=== PATIENT | male | born 1975 | race Caucasian/White ===

== ENCOUNTER → 2020-12-23 09:13 | Outpatient (CLI) | payer OTHER, SELFPAY ==
--- NOTE | ~2020-12-23 | XR_ITS ---
EXAMINATION: XR shoulder LT min 2V EXAM DATE: 12/23/2020 09:25 INDICATION: M25.512 - Pain in left shoulder . No known recent injury. TECHNIQUE: The following left shoulder projections obtained: frontal projection with internal rotatio n, frontal projection with external rotation, Grashey, and axillary (4+ views). There is no prior st udy for comparison. FINDINGS: No evidence of left shoulder rotator cuff calcific tendinosis. Unremarkable left glenoh umeral and acromioclavicular joints. There are no acute fractures or dislocations identified. There is no subcutaneous gas. The soft tissue is unremarkable. There are no radiopaque foreign bodies. IMPRESSION: 1. Unremarkable left shoulder exam. Reviewed, dictated and finalized at location A.
== END ==
PROVIDERS: PCP Family Medicine; Visit Provider Nurse Practitioner Family
DX: M25.512 Pain in left shoulder (principal)
CPT/HCPCS: 73030

== ENCOUNTER → 2021-01-11 07:45 | Outpatient (CLI) | payer OTHER, SELFPAY ==
--- NOTE | ~2021-01-11 | MR_ITS ---
EXAMINATION: MR shoulder LT wo con DATE: 01/11/2021 08:28 INDICATION: Left shoulder pain TECHNIQUE: Magnetic resonance imaging (MRI) of the affected shoulder was performed without intravenou s contrast. Sequences included axial PD-weighted FS FSE, coronal oblique PD-weighted FS FSE, coronal oblique T2-weighted FS FSE, sagittal PD-weighted FS FSE, and sagittal T1-weighted SE. COMPARISON: None. FINDINGS: Coracoacromial arch: The acromion undersurface is curved in morphology (type II). The coracoacromial ligament is normal. M inimal acromioclavicular osteoarthritis. Rotator cuff: Mild supraspinatus and subscapularis tendinopathy without discrete tear. The infraspinatus and teres minor tendons are normal. Normal rotator cuff muscle bulk and signal. Biceps tendon, glenoid labrum and glenohumeral cartilage: Long head of the biceps tendon is normal. Small tear at the 12:00-11:00 position of the glenoid labru m. Chondral fissuring near the chondro labral junction at the 3:30 rim of the anterior glenoid. Lamonte ohumeral cartilage is otherwise normal. Fluid: Physiologic amount of fluid in the glenohumeral joint and biceps tendon sheath. No loose osteochondra l bodies. No abnormal increased fluid signal in the subacromial/subdeltoid bursa to suggest bursitis. Bones: Normal marrow signal with no edema, fracture or abnormal marrow replacing process. IMPRESSION: 1. Small tear at the superior glenoid labrum and small region of partial-thickness chondral fissuring at the anterior rim of the glenoid. 2. Mild supraspinatus and subscapularis tendinopathy without discrete tear. Reviewed, dictated and finalized at location A. IMPRESSION: 1. Small tear at the superior glenoid labrum and small region of partial-thickn ess chondral fissuring at the anterior rim of the glenoid. 2. Mild supraspinatus and subscapularis tendinopathy without discrete tear.
== END ==
PROVIDERS: PCP Family Medicine; Visit Provider Nurse Practitioner Family
DX: M25.512 Pain in left shoulder (principal); M54.2 Cervicalgia; R29.898 Other symptoms and signs involving the musculoskeletal system; S43.432A Superior glenoid labrum lesion of left shoulder, initial encounter
CPT/HCPCS: 73221

== ENCOUNTER 2022-07-17 13:30 | Emergency (ER) | payer OTHER, SELFPAY ==
--- NOTE | ~2022-07-17 | XR_ITS ---
EXAM: XR shoulder LT min 2V DATE: 07/17/2022 14:29 HISTORY: fall,pain radiates to neck . COMPARISON: 12/23/2020. FINDINGS: Normal mineralization. No fracture or dislocation. No lytic or blastic lesion. Mild degene rative change at the glenohumeral joint. No erosion or periosteal change. Soft tissues within normal limits. IMPRESSION: No acute osseous finding in the left shoulder. Reviewed, dictated and finalized at location K.
--- NOTE | ~2022-07-17 | XR_ITS ---
EXAMINATION: XR ribs LT 2V w CXR 2V Exam Date/Time: 07/17/2022 14:20 CDT HISTORY: fall, lower left rib pain Comparison: None available. RESULT: Lines, tubes, and devices: None. Lungs and pleura: Subsegmental streaky opacities in the left lateral and retrocardiac lung. Mild lef t posterior costophrenic angle blunting. Cardiothymic silhouette: Unremarkable. Other: No acute upper abdominal finding. Minimally displaced left lateral seventh rib fracture. Nond isplaced left lateral sixth rib fracture. IMPRESSION: Nondisplaced left lateral sixth rib fracture. Minimally displaced left lateral seventh rib fracture. Left basilar atelectasis. Very small volume left posterior costophrenic sulcus fluid collection, like ly hemothorax in the setting of trauma. Reviewed, dictated and finalized at [facility]. IMPRESSION: Nondisplaced left lateral sixth rib fracture. Minimally displaced left lateral seventh rib fracture. Left basilar atelectasis. Very small volume left posterio r costophrenic sulcus fluid collection, likely hemothorax in the setting of tra karely.
[2022-07-17 13:42] VITALS: BP 156/88; PULSE 113; RESP 18; TEMP 36.6; O2SAT 99
--- NOTE | 2022-07-17 13:46 | ED.FALL ---
HPI - Fall General Chief Complaint: Fall <Nikki Macdonald NP - Last Filed: 07/17/22 16:05> Stated Complaint: Fall <Nikki Macdonald NP - Last Filed: 07/17/22 16:05> Time Seen by Provider: 07/17/22 13:46 <Nikki Macdonald NP - Last Filed: 07/17/22 16:05> Source: patient <Nikki Macdonald NP - Last Filed: 07/17/22 16:05> Mode of arrival: ambulatory <CHADWICK Lerma Last Filed: 07/17/22 16:05> Limitations: no limitations <CHADWICK Lerma Last Filed: 07/17/22 16:05> History of Present Illness HPI Narrative: 46 yo Male presents with complaint of left shoulder pain, left lateral rib pain after tripping over his dog last night. Reports the injury happened around midnight. states that he fell backwards. Denies hitting his head, no LOC. Patient ambulatory with steady gait. Is uncomfortable, holding left side of ribs and unable to sit due to pain. Denies shortness of breath. Took Tylenol around 9:00 a.m. this morning. All systems reviewed and negative except as noted above. <Nikki Macdonald NP - Last Filed: 07/17/22 16:05> Related Data Home Medications: Home Medications Medication Instructions Recorded Confirmed No Home Medications 12/23/20 07/17/22 <CHADWICK Lerma Last Filed: 07/17/22 16:05> Allergies/Adverse Reactions: Allergies Allergy/AdvReac Type Severity Reaction Status Date / Time No Known Allergies Allergy Verified 07/17/22 13:42 <Nikki Macdonald NP - Last Filed: 07/17/22 16:05> Review of Systems Review of Systems: CONSTITUTIONAL: Denies fever, chills, or sweats. EYES: Denies visual changes, redness, or discharge. ENT: Denies rhinorrhea, congestion, sore throat, or otalgia. CARDIOVASCULAR: Denies chest pain, palpitations, or edema. RESPIRATORY: Denies cough or dyspnea. GASTROINTESTINAL: Denies abdominal pain, nausea, vomiting, or diarrhea. GENITOURINARY: Denies dysuria or hematuria. SKIN: Denies rash or itching. MUSCULOSKELETAL: reports left-sided rib pain, left shoulder pain. NEUROLOGIC: Denies headache, numbness, or weakness. PSYCHIATRIC: Denies anxiety or depression. All other systems reviewed are negative, except as documented in HPI. <Nikki Macdonald NP - Last Filed: 07/17/22 16:05> COUNTS INCLUDE 234 BEDS AT THE [facility] Past Medical History Medical History: Medical History BMI 28.0-28.9,adult Cramping of hands Dietary counseling and surveillance (12/13/18) Elevated fasting glucose Encounter for screening for malignant neoplasm of prostate Low back pain Mixed hyperlipidemia Rotator cuff tendonitis <Nikki Macdonald NP - Last Filed: 07/17/22 16:05> Family History Family History: Family History Father Cancer Mother Cancer Sibling No problems noted. Other Diabetes mellitus Hypertension <Nikki Macdonald NP - Last Filed: 07/17/22 16:05> Social History Social History: Social History Smoking status: Never smoker Alcohol intake: current Substance use: never Substance use type: does not use Living arrangements: with family Occupation/Education: occupation Additional occupation/education comments: [employer] Gender identity (if verbalized by the patient): Male <Nikki Macdonald NP - Last Filed: 07/17/22 16:05> Comments At time of signature, agree with nursing past medical, surgical, social and family history. There is no relevant family history pertinent to the presenting complaint. <Nikki Macdonald NP - Last Filed: 07/17/22 16:05> Exam Narrative: GENERAL: This is a well-nourished, well-developed patient, in no apparent distress. HEAD: normocephalic, atraumatic. EYES: PERRL. Sclera clear/white. Vision is grossly intact. EARS: External ears normal NOSE
--- NOTE | 2022-07-17 13:53 | PC.NURSE ---
1351- Rn to Rn report given to Pancho Love, transferred to [facility] facility for xray
== END 2022-07-17 15:20 | disposition short-term general hospital (02) ==
PROVIDERS: Emergency Provider Nurse Practitioner Family; PCP Family Medicine
DX: S22.42XA Multiple fractures of ribs, left side, initial encounter for closed fracture (principal); W01.0XXA Fall on same level from slipping, tripping and stumbling without subsequent striking against object, initial encounter; M25.512 Pain in left shoulder; E78.2 Mixed hyperlipidemia
CPT/HCPCS: 71046; 71100; 73030; 99214; G0463

== ENCOUNTER 2024-02-08 07:00 | Outpatient (NON) | payer OTHER, SELFPAY | END 2024-02-08 07:01 | disposition home or self-care (01) | LOC: ANHLAB 02-09 07:26 | PROVIDERS: PCP Family Medicine; Visit Provider Internal Medicine Gastroenterology | DX: K63.5 Polyp of colon (principal) | CPT/HCPCS: 88305 ==

== ENCOUNTER 2024-02-08 07:10 | Day surgery (SDC) | payer OTHER, SELFPAY ==
[2024-01-01 15:13] VITALS: BMI 28.0
[2024-01-23 11:53] VITALS: BMI 26.9
[2024-02-08 08:17] VITALS: BP 123/91; PULSE 108; RESP 16; O2SAT 99; BMI 26.5
--- NOTE | 2024-02-08 08:26 | PM.HPGS ---
History of Present Illness History of Present Illness Consent: Risks, benefits, and alternatives have been discussed and questions answered. Patient agrees to proceed with procedure. Chief complaint: Family History of Colon Cancer Narrative: Nicho Swann is a 48 year old male presents for screening colonoscopy. His father had colon cancer. His brother and his sister both have had colon polyps. The patient reports that his own weight appetite and bowel habits are normal. The patient denies abdominal pain. He has had no bleeding. Review of Systems Review of Systems: All systems reviewed & are unremarkable except as noted in HPI and below PMFSH Past Medical History Medical History (Updated 02/07/24 @ 13:24 by Julián Cuellar, DO) BMI 28.0-28.9,adult Cramping of hands Dietary counseling and surveillance (12/13/18) Elevated fasting glucose Encounter for screening for malignant neoplasm of prostate Essential hypertension Fracture of rib of left side Low back pain Mixed hyperlipidemia Rotator cuff tendonitis Uncontrolled pain Family History Family History Father Cancer Mother Cancer Sibling No problems noted. Other Diabetes mellitus Hypertension Social History Social History Smoking status: Current every day smoker Tobacco type: e-cigarettes/vaping Alcohol intake: current Drinks per week: 30 Alcohol use details: beer Substance use: never Substance use type: does not use Lack of Transportation: No Lack of Food: Never True Current Housing: I Have Housing Concerned About Future Housing: No Difficulty Paying Gas/Electric Bills: No Difficulty Paying for Meds: No Currently Unemployed: No Difficulty w/ Childcare or Family Care: No Living arrangements: with family Occupation/Education: occupation Additional occupation/education comments: [employer] Gender identity (if verbalized by the patient): Male Spiritual care concerns: No Meds Home Medications and Allergies Home Medications Medication Instructions Recorded Confirmed Type lisinopril 10 mg tablet 10 mg PO DAILY #30 tabs 12/19/23 02/08/24 Rx mecobalamin (vitamin B12) 2,500 2,500 mcg PO DAILY 01/23/24 02/08/24 History mcg chewable tablet Allergies Allergy/AdvReac Type Severity Reaction Status Date / Time No Known Allergies Allergy Verified 02/08/24 08:08 Vital Signs Vital Signs - 24 hr 02/08/24 08:17 Pulse Rate 108 H Respiratory Rate 16 Blood Pressure 123/91 H Pulse Oximetry 99 Oxygen Delivery Room Air Exam Narrative: Physical exam reveals patient to be alert , vital signs stable. HEENT exam is unremarkable. Is anicteric. Lungs are clear. Heart without murmur bowel sounds are present soft and nontender. Digital and exam is normal. Assessment and Plan Assessment and plan (1) Family hx of colon cancer: Code(s): Z80.0 - Family history of malignant neoplasm of digestive organs Status: Acute Assessment and Plan: Is a family history of colon cancer in his father. Brother and sister both have had polyps. Plan for patient colonoscopy now, and anticipate this at 5 year intervals.
[2024-02-08] MEDS: LACTATED RINGERS 1,000 ML 150 ML IV CONT (08:27)
--- NOTE | 2024-02-08 09:32 | WPDANESEPPF ---
Anes - Initial Pre Proc Eval Procedure: Operation Date: 02/08/24 09:30 Proposed Procedures p Diagnostic Colonoscopy - Calixto Gerard MD Date/Time: 02/08/24 09:32 Surgeon: Calixto Gerard MD Pre Op Diagnosis: neoplasm screening Pre Op Diagnosis: Family History of Colon Cancer Patient Data Age: 48 Gender: M Height: 1.78 m Weight: 84 kg Last Vital Signs Pulse 108 H 02/08/24 08:17 Resp 16 02/08/24 08:17 BP 123/91 H 02/08/24 08:17 Pulse Ox 99 02/08/24 08:17 O2 Del Method Room Air 02/08/24 08:17 Allergies Allergy/AdvReac Type Severity Reaction Status Date / Time No Known Allergies Allergy Verified 02/08/24 08:08 Home Medications Medication Instructions Recorded Confirmed Type lisinopril 10 mg tablet 10 mg PO DAILY #30 tabs 12/19/23 02/08/24 Rx mecobalamin (vitamin B12) 2,500 2,500 mcg PO DAILY 01/23/24 02/08/24 History mcg chewable tablet Patient hx anesthesia problems: none Family hx anesthesia problems: none Results Review: All pre-operative results and documents have been reviewed as part of the pre-operative evaluation. COUNTS INCLUDE 234 BEDS AT THE [facility] Past Medical History Medical History BMI 28.0-28.9,adult Cramping of hands Dietary counseling and surveillance (12/13/18) Elevated fasting glucose Encounter for screening for malignant neoplasm of prostate Essential hypertension Fracture of rib of left side Low back pain Mixed hyperlipidemia Rotator cuff tendonitis Uncontrolled pain Family History Family History Father Cancer Mother Cancer Sibling No problems noted. Other Diabetes mellitus Hypertension Social History Social History Smoking status: Current every day smoker Tobacco type: e-cigarettes/vaping Alcohol intake: current Drinks per week: 30 Alcohol use details: beer Substance use: never Substance use type: does not use Lack of Transportation: No Lack of Food: Never True Current Housing: I Have Housing Concerned About Future Housing: No Difficulty Paying Gas/Electric Bills: No Difficulty Paying for Meds: No Currently Unemployed: No Difficulty w/ Childcare or Family Care: No Living arrangements: with family Occupation/Education: occupation Additional occupation/education comments: [employer] Gender identity (if verbalized by the patient): Male Spiritual care concerns: No Anes - Eval Final PreProcedure Day of Procedure 02/08/24 09:32 Patient weight: normal Heart: regular rate and rhythm Lungs: normal air movement Airway: Mallampati scale class II Neurological: alert and oriented Last oral intake: >/= 8 hours ASA classification: II Emergent: no Anesthetic plan: proceed Anesthesia type and monitoring: general GIVS and standard monitoring Results Review: All pre-operative results and documents have been reviewed as part of the pre-operative evaluation. Informed Consent: The patient's anesthetic plan and its attendant risks and benefits were discussed with the patient/family/POA. Questions were solicited and answers provided to the satisfaction of the patient/family/POA.
[2024-02-08 09:59] VITALS: BP 126/92; PULSE 111; RESP 14; O2SAT 99
[2024-02-08 10:09] VITALS: BP 126/89; PULSE 92; RESP 15; O2SAT 100
[2024-02-08 10:19] VITALS: BP 131/88; PULSE 90; RESP 14; O2SAT 100
--- NOTE | 2024-02-08 12:41 | WPDANESPN ---
Anes - Prog Note Post-Op Date/Time: 02/08/24 12:41 Cardiovascular status: normal Respiratory status: normal Airway patency: baseline Mental status: baseline Post-Op hydration status: normal Vital Signs: Last Vital Signs Pulse 90 02/08/24 10:19 Resp 14 02/08/24 10:19 BP 131/88 02/08/24 10:19 Pulse Ox 100 02/08/24 10:19 O2 Del Method Room Air 02/08/24 10:19 Pain Score (VAS): 0 I/O: Intake & Output 02/07/24 02/08/24 02/08/24 23:59 07:59 15:59 Intake Total 650 Balance 650 Post-procedural complaints: none Patient Feedback: Patient satisfied with anesthetic care. Other Findings: Patient vital signs back to baseline. Patient denies nausea and vomiting. Patient's pain under control. Patient OK for discharge.
== END 2024-02-08 10:22 | disposition home or self-care (01) ==
PROVIDERS: PCP Family Medicine; Visit Provider Internal Medicine Gastroenterology
PROC: 0DJD8ZZ Inspection of Lower Intestinal Tract, Via Natural or Artificial Opening Endoscopic (ICD-10-PCS; CPT 45378; principal; 2024-02-08 09:30)
DX: Z80.0 Family history of malignant neoplasm of digestive organs (principal); D12.5 Benign neoplasm of sigmoid colon; K64.8 Other hemorrhoids
CPT/HCPCS: 45385

== ENCOUNTER 2024-12-19 11:34 | Emergency (ER) | payer OTHER, SELFPAY ==
--- NOTE | 2024-12-19 11:36 | ED.EYEPROB ---
HPI - Eye Problem General Chief complaint: Eye Problems Stated complaint: RT eye problems Time Seen by Provider: 12/19/24 11:36 Source: patient Mode of arrival: ambulatory Limitations: no limitations History of Present Illness HPI Narrative: Patient is a 49-year-old male who presents with right eye irritation at the corner of his eye after having [employer]art 950 adhesive sprayed into face. Patient was wearing glasses so it did not go directly into his eyes. Patient states he immediately went to the bathroom and was rinsing his face. Patient has worked with this product multiple times in has never had allergic reaction when it is on his hands. Denies any vision changes or feeling of foreign body in eye. Just reports burning sensation to the corner of his eye. Related Data Home Medications ?Medication ?Instructions ?Recorded ?Confirmed ?Last Taken ?Type mecobalamin (vitamin B12) 2,500 2,500 mcg PO DAILY 01/23/24 07/16/24 02/06/24 History mcg chewable tablet Allergies Allergy/AdvReac Type Severity Reaction Status Date / Time No Known Allergies Allergy Verified 12/19/24 11:36 Review of Systems Review of Systems: All systems reviewed & are unremarkable except as noted in HPI and below Constitutional: Constitutional: Denies body ache(s), Denies fever(s), Denies headache(s), Denies malaise and Denies weakness Eyes: Eyes: Denies blurry vision, Denies eye discharge, Reports irritation, Denies itchy eyes, Denies loss of vision and Denies eye pain ENT: Denies otalgia, Denies headache(s), Denies nasal discharge, Denies sinus pain and Denies sore throat Cardiovascular: Cardiovascular: Denies chest pain, Denies irregular heart rhythm and Denies dyspnea Respiratory: Respiratory: Denies dyspnea Gastrointestinal: Gastrointestinal: Denies abdominal pain, Denies diarrhea, Denies nausea and Denies vomiting Musculoskeletal: Musculoskeletal: Denies back pain, Denies myalgias and Denies arthralgias Integumentary/Breasts: Skin/Breast: Denies pruritus and Denies rash Neurologic: Denies headache(s), Denies loss of vision and Denies weakness Psychiatric: Psychiatric: Reports no additional psychiatric complaints Allergic/Immunologic: Allergic/Immunologic: Reports itchy eyes PMFSH Past Medical History Medical History Essential hypertension Uncontrolled pain Fracture of rib of left side Rotator cuff tendonitis BMI 28.0-28.9,adult Cramping of hands Dietary counseling and surveillance (12/13/18) Elevated fasting glucose Encounter for screening for malignant neoplasm of prostate Low back pain Mixed hyperlipidemia Family History Family History Father Cancer Mother Cancer Sibling No problems noted. Other Diabetes mellitus Hypertension Social History Social History Smoking status: Current every day smoker Tobacco type: e-cigarettes/vaping Alcohol intake: current Drinks per week: 30 Alcohol use details: beer Substance use: never Substance use type: does not use Lack of Transportation: No Lack of Food: Never True Current Housing: I Have Housing Concerned About Future Housing: No Difficulty Paying Gas/Electric Bills: No Difficulty Paying for Meds: No Currently Unemployed: No Difficulty w/ Childcare or Family Care: No Living arrangements: with family Occupation/Education: occupation Additional occupation/education comments: [employer] Gender identity (if verbalized by the patient): Male Spiritual care concerns: No Comments At time of signature, agree with nursing past medical, surgical, social and family history. There is no relevant family history pertinent to the presenting complaint. Exam Const: General: cooperative, healthy appearing, comfortable, no acute distress and well nourished Nutritional Appearance: well nourished Orientation/consciousness: patient oriented x3 Limitations: no limitations HENMT: Head: normal to inspection, normocephalic and atraumatic Ears: external ears normal Face/Nose/Sinus: Normal external nose present, normal facial exam and face symmetric Face and sinus: normal facial exam and face symmetric Mouth: Yes lip normal Eyes: General: appearance normal, both eyes and all related structures Visual Granado: normal visual granado by confrontation Alignment and Position: alignment normal and position normal Periorbital: periorbital findings normal Eyelids: eyelids normal Conjunctivae: conjunctivae normal Sclera: sclerae normal Pupils: Equal, round and reactive pupils present EOM: EOMs intact bilaterally Direct Ophthalmoscopy: no photophobia Other: No hyphema, no foreign body under the lids. Neck: Neck: normal visual inspection, full ROM, no lymphadenopathy and no meningeal signs Chest: Chest palpation & inspection: normal inspection of the chest Resp: Effort & Inspection: normal respiratory effort and able to speak in complete sentences Auscultation: clear to auscultation bilaterally Cardio: Rate: regular rate Rhythm: regular rhythm Heart sounds: S1 normal heart sound present and S2 normal heart sound present GI: Inspection: normal to inspection Skin: General skin exam: normal color and no rashes or lesions noted Neuro: General: patient oriented x3, moves all extremities and no meningeal signs Cranial nerves: Yes Equal, round and reactive pupils present Speech: normal speech Gait exam (Neuro): Normal gait present Extrem: General: normal to inspection, full ROM and no edema Psych: Appearance: grossly normal and well kempt Mental Status: mental status grossly normal Speech and movement: Normal speech and movement present Affect: normal affect Attitude: cooperative Thought process: Normal thought process present Course Course Emergency Course: Patient is aware of diagnosis, understands and agrees to treatment plan. Anticipatory guidance given. Patient agrees to follow-up as directed and is aware of reasons to seek care at the emergency department. Portions of this record may have been created with voice recognition software Level of Care: Express Care Visit Vital Signs Vital signs: Vital Signs Temperature 36.8 C 12/19/24 11:38 Pulse Rate 108 H 12/19/24 11:38 Respiratory Rate 16 12/19/24 11:38 Blood Pressure 137/96 H 12/19/24 11:38 Pulse Oximetry 100 12/19/24 11:38 Oxygen Delivery Room Air 12/19/24 11:38 Temperature 36.8 C 12/19/24 11:38 Pulse Rate 108 H 12/19/24 11:38 Respiratory Rate 16 12/19/24 11:38 Blood Pressure 137/96 H 12/19/24 11:38 Pulse Oximetry 12/19/24 11:38 Oxygen Delivery Room Air 12/19/24 11:38 Reviewed MDM - Eye Problem MDM Narrative Medical decision making narrative: Irrigated eyes excessively. Also removed glue from face. Patient reports burning sensation in corner of eye has resolved. Does report minor irritation from irrigation and eye. Denies any foreign body feelings in eye or blurred vision. Will treat with steroids for possible allergic reaction along with antibiotic ointment in eye. Exam findings show no acute concerns or changes; patient is non-toxic appearing and is in no distress.? Patient is appropriate for outpatient treatment and follow-up Discharge instructions reviewed with patient and family, as well as provided in writing per nursing staff. The instructions also include specific and strict return/GO TO THE ER as well as f/u information. All questions have been answered, and the patient deny any further questions with discharge and discharge plan. Consideration of the following conditions may be warranted for the presenting problem, they are not final diagnoses: Bacterial conjunctivitis, allergic conjunctivitis, viral conjunctivitis, foreign body, blepharitis, chalazion, hordeolum, corneal abrasion. Differential Diagnosis Differential diagnosis: Likely periorbital cellulitis and other (Foreign body ) Medical Records Attestation: I reviewed the patient's medical records. Discharge Plan Discharge Clinical Impression: Foreign body in eye region, Allergic reaction Patient Disposition: Home Condition: Stable Instructions: Eye Wash (Into the eye) Additional Instructions: Eye ointment as prescribed. Use Aquaphor on face for irritation. Take steroids in the morning with food -Do this for 3 to 4 days until all redness and irritation has disappeared. -Cold compresses to the affected eye for comfort -Alternate or take Tylenol or ibuprofen as directed in the bottle for pain -Avoid screen time--television, computer, tablet or phone. -Practice good handwashing and hygiene to prevent spread of infection Follow-up with PCP or [facility] if condition is not improving in 2-3days. Go to the emergency room if you have pain behind your eye, pressure behind her eye, difficulty seeing, or other severe symptoms Patient Language: Tamazight Prescriptions: New prednisone 20 mg tablet See Rx Instructions .ROUTE .COMPLEX Qty: 9 0RF Rx Instructions: 40 mg daily x3 days, 20 mg daily x3 days erythromycin 5 mg/gram (0.5 %) ointment 0.5 inch RIGHT EYE QID 5 Days Qty: 3.5 0RF No Action lisinopril 10 mg tablet 10 mg PO DAILY Qty: 90 3RF mecobalamin (vitamin B12) 2,500 mcg Tablet,Chewable 2,500 mcg PO DAILY Follow-up/Referrals: Hunter Sevilla MD [Primary Care Provider, Family Practice] - 3 Days Stand Alone Forms: Work/School Release IP Time of Disposition: 12:26
[2024-12-19 11:38] VITALS: BP 137/96; PULSE 108; RESP 16; TEMP 36.8; O2SAT 100
[2024-12-19] MEDS: DACRIOSE EYE IRRIGATION 118 ML BOTTLE RIGHT EYE (12:30)
== END 2024-12-19 12:35 | disposition home or self-care (01) ==
PROVIDERS: Emergency Provider Nurse Practitioner Family; PCP Family Medicine
DX: T15.91XA Foreign body on external eye, part unspecified, right eye, initial encounter (principal); W44.8XXA Other foreign body entering into or through a natural orifice, initial encounter; T78.40XA Allergy, unspecified, initial encounter; F17.290 Nicotine dependence, other tobacco product, uncomplicated; I10 Essential (primary) hypertension; E78.2 Mixed hyperlipidemia
CPT/HCPCS: 99213; G0463

== ENCOUNTER 2025-03-04 20:28 | Emergency (ER) | payer OTHER, SELFPAY ==
[2025-03-04 20:32] VITALS: BP 142/96; PULSE 97; RESP 20; TEMP 36.1; O2SAT 97
--- NOTE | 2025-03-04 23:12 | ED.ANIMALBIT ---
HPI - Animal Bite General Chief Complaint: Animal Bite Stated Complaint: animal bite cat/dog Time Seen by Provider: 03/04/25 22:27 History of Present Illness HPI narrative: Patient is a 49-year-old male who presents to the ER with several puncture chung on his left forearm. He reports his dog got in a fight with his neighbor's cat and he intervened to break it up. Patient is unsure whether he got scratched or bit by both the dog and a cat. He reports the incident happened around 530 this evening. Patient reports both animals are vaccinated. He denies any decreased range of motion, purulence drainage from the site, or fevers. Patient denies any pain. Patient does endorse itchiness and significant swelling to his left hand. He is unsure when he last had his tetanus shot. Patient denies any other medical history relevant to this ER visit. Related Data Home Medications ?Medication ?Instructions ?Recorded ?Confirmed ?Last Taken ?Type mecobalamin (vitamin B12) 2,500 2,500 mcg PO DAILY 01/23/24 07/16/24 02/06/24 History mcg chewable tablet Allergies Allergy/AdvReac Type Severity Reaction Status Date / Time No Known Allergies Allergy Verified 12/19/24 11:36 Review of Systems Review of Systems: All systems reviewed & are unremarkable except as noted in HPI and below PMFSH Past Medical History Medical History Essential hypertension Uncontrolled pain Fracture of rib of left side Rotator cuff tendonitis BMI 28.0-28.9,adult Cramping of hands Dietary counseling and surveillance (12/13/18) Elevated fasting glucose Encounter for screening for malignant neoplasm of prostate Low back pain Mixed hyperlipidemia Family History Family History Father Cancer Mother Cancer Sibling No problems noted. Other Diabetes mellitus Hypertension Social History Social History Smoking status: Current every day smoker Tobacco type: e-cigarettes/vaping Alcohol intake: current Drinks per week: 30 Alcohol use details: beer Substance use: never Substance use type: does not use Lack of Transportation: No Lack of Food: Never True Current Housing: I Have Housing Concerned About Future Housing: No Difficulty Paying Gas/Electric Bills: No Difficulty Paying for Meds: No Currently Unemployed: No Difficulty w/ Childcare or Family Care: No Living arrangements: with family Occupation/Education: occupation Additional occupation/education comments: HVAC Gender identity (if verbalized by the patient): Male Spiritual care concerns: No Exam Narrative: GENERAL: Well appearing, well-nourished, non-toxic, in no acute distress. HEAD: Normocephalic, atraumatic. NECK: Supple. No adenopathy, no masses. RESPIRATORY: Airway patent, respirations nonlabored. Clear to auscultation bilaterally, no rales, rhonchi, wheezing. CARDIOVASCULAR: Regular rate and rhythm without murmurs, rubs, or gallops. Peripheral pulses 2+ and equal bilaterally. ABDOMINAL: Soft, nontender, nondistended, no hepatosplenomegaly. Normoactive BS. MUSCULOSKELETAL: Moves all extremities. Strength/ROM intact without gross deformities. SKIN: Warm, dry, normal color. No rashes. Multiple puncture chung and scratches to left forearm and in between left thumb and forefinger. Significant swelling to left hand. Slight warmth to the site. No purulence drainage noted. NEURO: A&O X3. Speech clear. Cranial nerves II-XII intact. No ataxic movements. PSYCHIATRIC: Appropriate mood and affect. Normal interaction. Course Vital Signs Vital signs: Vital Signs Temperature 36.1 C L 03/04/25 20:32 Pulse Rate 97 03/04/25 20:32 Respiratory Rate 20 03/04/25 20:32 Blood Pressure 142/96 H 03/04/25 20:32 Pulse Oximetry 97 03/04/25 20:32 Temperature 36.1 C L 03/04/25 20:32 Pulse Rate 97 03/04/25 20:32 Respiratory Rate 20 03/04/25 20:32 Blood Pressure 142/96 H 03/04/25 20:32 Pulse Oximetry 97 03/04/25 20:32 MDM - Animal Bite MDM Narrative Medical decision making narrative: Patient is a 49-year-old male who presents to the ER with several puncture chung on his left forearm. He reports his dog got in a fight with his neighbor's cat and he intervened to break it up. Patient is unsure whether he got scratched or bit by both the dog and a cat. He reports the incident happened around 530 this evening. Patient reports both animals are vaccinated. He denies any decreased range of motion, purulence drainage from the site, or fevers. Patient does endorse itchiness and significant swelling to his left hand. He is unsure when he last had his tetanus shot. Patient denies any other medical history relevant to this ER visit. Labs Ordered: None necessary Imaging Ordered: None necessary (patient denies pain) Medications Ordered: Tdap, Augmentin p.o. Diagnosis: Dog bite, puncture wound Patient Education/Shared MDM: Patient denies any pain and declines pain medication administration. He was offered a CT scan of the site but declined, as there is no pain. Patient strongly advised to follow-up with his PCP in the next 2-3 days to ensure healing. He will be discharged home with a prescription for Augmentin, with his 1st dose here in the ER. Strict return precautions provided. Patient verbalized understanding and is in agreement with plan. Vital signs stable at time of discharge. All questions answered. Differential Diagnosis Differential diagnosis: Likely bite by animal, cat bite and dog bite Discharge Plan Discharge Clinical Impression: Dog bite, Cat bite, Localized swelling on left hand, Puncture wound of hand, left Patient Disposition: Home Condition: Stable Instructions: Antibiotic Form, Animal Bite (ED) Additional Instructions: Please return to the ER with any worsening symptoms. Follow-up with primary care provider in the next 2-3 days to ensure you are healing. If you began to develop pain please come back for imaging of your hand. Take all medications as prescribed, including regularly scheduled medications. You may take Tylenol and/or ibuprofen for pain control. Please complete your full dose of antibiotics. Patient Language: Albanian Prescriptions: New amoxicillin-pot clavulanate 875-125 mg tablet 1 tablet PO Q12H Qty: 20 0RF No Action prednisone 20 mg tablet See Rx Instructions .ROUTE .COMPLEX Qty: 9 0RF Rx Instructions: 40 mg daily x3 days, 20 mg daily x3 days erythromycin 5 mg/gram (0.5 %) ointment 0.5 inch RIGHT EYE QID 5 Days Qty: 3.5 0RF lisinopril 10 mg tablet 10 mg PO DAILY Qty: 90 3RF mecobalamin (vitamin B12) 2,500 mcg Tablet,Chewable 2,500 mcg PO DAILY Follow-up/Referrals: Hunter Sevilla MD [Primary Care Provider, Family Practice] Stand Alone Forms: Work/School Release IP Time of Disposition: 23:19
[2025-03-04] MEDS: TETANUS,DIPHTHERIA,AC PERTUSSIS ADULT (0.5 ML) BOOSTRIX IM (23:35)
[2025-03-04 23:41] VITALS: BP 136/92; PULSE 91; RESP 16; TEMP 36.4; O2SAT 98
[2025-03-04 23:42] VITALS: BP 136/92; PULSE 91; RESP 16; TEMP 36.4; O2SAT 98
--- OUTSIDE RECORDS SUMMARY | 2025-03-05 05:06 | XMS_ITS | Clinical Summary ---
Author Organization [facility] Address [address] [place] [address] Care Team Providers Care A&P Mechanic Name Role Phone Hunter Sevilla MD Primary Care Provider [phone] Source Comments [facility],non-owned Affiliates and Associated Physician Practices is amultiple site organization consisting of ambulatory clinics and hospital sitesin [place], [place], [place] and [place]. This disclosure is being madepursuant to the Care Everywhere program and may not contain all information available regarding this patient. Last updated 18.[facility] Allergies No known active allergies Medications * Be aware that medications may not be up to date on this document. Alwaysverify current medications with the patient. ibuprofen (Motrin) 600 MG tablet Take 1 (one) tablet by mouth every 6 hours as needed for Pain 30 tablet 3 Active acetaminophen (Tylenol) 500 MG tablet Take 2 (two) tablets by mouth every 6 hours as needed for Fever or Pain Maximum allowable Acetaminophen amount = 4 Grams (4000 mg) / 24 hours. 30 tablet 3 Active lidocaine (Lidoderm) 5 % patch Apply 2 (two) patches to skin once daily Apply patch to most painful area and remove after 12 hours. May reapply a new patch 12 hours later. 30 patch 3 Active Social History Tobacco Use Types Packs/Day Years Used Date Smoking Tobacco: Never Assessed Sex and Gender Information Value Date Recorded Sex Assigned at Not on file Legal Sex Male 3:32 PM CDT Gender Identity Not on file Sexual Orientation Not on file Last Filed Vital Signs Vital Sign Reading Time Taken Comments Blood Pressure 129/84 07/18/2022 3:00 AM CDT Pulse 101 07/18/2022 3:00 AM CDT Temperature 36.2 C (97.2 F) 07/17/2022 4:28 PM CDT Respiratory Rate 12 07/18/2022 3:00 AM CDT Oxygen Saturation 92% 07/18/2022 3:00 AM CDT Inhaled Oxygen Concentration - - Weight 90.7 kg (200 lb) 07/17/2022 6:28 PM CDT Height 180.3 cm (5' 11) 07/17/2022 6:28 PM CDT Body Mass Index 27.89 07/17/2022 6:28 PM CDT Plan of Treatment Health Maintenance Due Date Last Done Comments COLOGUARD (AGES 45-75) - COL ON CA SCREENING 1977 COLON MONITORING 1977 COLONOSCOPY - COLON CA SCREENING 1977 CT COLONOGRAPHY - COLON CA SCREENING 1977 Colorectal Cancer Screening 1977 FIT - COLON CA SCREENING 1977 FLEX SIG - COLON CA SCREENING 1977 LIPID TESTING 1977 HIV SCREENING 1992 HEPATITIS C SCREENING 11/07/1995 DTAP/TDAP/TD VACCINES (1 - Tdap) 1996 HEPATITIS B VACCINE (1 of 3 - 19+ 3-dose series) 1996 DEPRESSION SCREENING 04/17/2024 COVID-19 VACCINE (1 - 2024-2 6 season) 2024 INFLUENZA VACCINE (#1) 2024 ZOSTER VACCINE (1 of 2) 11/12/2027 HIB VACCINE Aged Out No longer eligi ble based on patient's age to complete this topic HPV VACCINE Aged Out No longer eligi ble based on patient's age to complete this topic MENINGOCOCCAL (Group B) VACC INE SHARED DECISION-MAKING Aged Out No longer eligibl e based on patient's age to complete this topic MENINGOCOCCAL GROUPS A/C/Y/W VACCINE Aged Out No longer eligible b ased on patient's age to complete this topic PNEUMOCOCCAL VACCINE Aged Out No long er eligible based on patient's age to complete this topic Insurance [facility] [employer] [facility] SELF PAY NO INSURANCE Member Subscriber Plan / Payer (Ef fective for All Dates) Name:Nicho Davalos Member ID:Not on file Relation to Subscriber:Not on file Name:NICHO DAVALOS Subscriber ID:Not on file (Home) Address: [address] [place] [address] Payer ID:Not on file Group ID:Not on file Type:Self Pay Address: [place], [place] [facility] Care Teams A&P Mechanic Relationship Specialty Start Date End Date Hunter Sevilla MD [address] [place] [id number] PCP - General Family Medicine 07/17/22
== END 2025-03-04 23:44 | disposition home or self-care (01) ==
PROVIDERS: Emergency Provider Registered Nurse; PCP Family Medicine
DX: S61.452A Open bite of left hand, initial encounter (principal); W54.0XXA Bitten by dog, initial encounter; F17.290 Nicotine dependence, other tobacco product, uncomplicated; I10 Essential (primary) hypertension; E78.5 Hyperlipidemia, unspecified; Z23 Encounter for immunization
CPT/HCPCS: 90471; 90715; 99283; A9270